=== PATIENT | female | born 1945 | race Caucasian/White ===

== ENCOUNTER 2019-05-05 10:35 | Emergency (ER) | payer MEDICARE ==
[2019-05-05] MEDS ORDERED: diphenhydrAMINE 25 MG Cap PO ONE (10:41)
--- NOTE | 2019-05-05 11:01 | EDM.PDOC ---
ED HPI GENERAL MEDICAL PROBLEM - General Stated Complaint: STUNK BY BEES Time Seen by Provider: 05/05/19 10:35 Source of Information: Reports: Patient History Limitations: Reports: No Limitations - History of Present Illness INITIAL COMMENTS - FREE TEXT/NARRATIVE: 73-year-old female was stung several times about one hour ago, mostly on her hands. She is very anxious and concerned she is can get a systemic reaction because she has 2 sons that are allergic to bees. She has never had an allergic reaction herself. Her hands are extremely itchy where she was stung, she is also very itchy on her 1 foot where she was stung. No shortness of breath, rash , swelling or other systemic symptoms. Onset: Sudden Duration: Hour(s): (About one hour ago) Location: Reports: Upper Extremity, Left, Lower Extremity, Right Quality: Reports: Burning, Sharp, Stabbing, Other (Markedly itchy) Associated Symptoms: Reports: No Other Symptoms hands Pain Score (Numeric/FACES): 10 - Related Data Allergies Allergy/AdvReac Type Severity Reaction Status Date / Time erythromycin base Allergy Hives Verified 05/05/19 10:42 niacin Allergy Nausea Verified 05/05/19 10:42 Home Meds: Home Meds Aspirin [Adult Low Dose Aspirin EC] 81 mg PO DAILY 04/17/14 [History] Propranolol [Inderal] 40 mg PO BEDTIME 05/05/19 [History] Propranolol [Inderal] 80 mg PO DAILY 05/05/19 [History] Simvastatin [Zocor] 20 mg PO DAILY 05/05/19 [History] hydroCHLOROthiazide [Hydrochlorothiazide] 1 tab PO DAILY 05/05/19 [History] ED ROS GENERAL - Review of Systems Review Of Systems: See Below Constitutional: Denies: Fever, Chills Respiratory: Denies: Shortness of Breath, Cough Cardiovascular: Denies: Chest Pain GI/Abdominal: Denies: Abdominal Pain, Nausea, Vomiting Skin: Reports: Pruritis Neurological: Denies: Paresthesia ED EXAM, GENERAL - Physical Exam Exam: See Below Exam Limited By: No Limitations General Appearance: Alert, Anxious Eye Exam: Bilateral Eye: Normal Inspection Throat/Mouth: Normal Inspection Head: Atraumatic Neck: Normal Inspection Respiratory/Chest: No Respiratory Distress, Lungs Clear Cardiovascular: Regular Rate, Rhythm Extremities: Other (Some slight erythema at sites of stings but no swelling) Neurological: Alert, Oriented Skin Exam: Other (Slight erythema at sting sites only, no systemic erythema or hives) Course - Vital Signs Last Recorded V/S: Last Vital Signs Temp 97.2 F 05/05/19 10:52 Pulse 67 05/05/19 10:52 Resp 20 05/05/19 10:52 BP 199/89 H 05/05/19 10:52 Pulse Ox 97 05/05/19 10:52 - Orders/Labs/Meds Meds: Medications Discontinued Medications Generic Name Dose Route Start Last Admin Trade Name Danika PRN Reason Stop Dose Admin Diphenhydramine HCl 50 mg 05/05/19 10:41 05/05/19 10:47 Benadryl PO 05/05/19 10:42 50 mg ONETIME ONE Administration - Re-Assessments/Exams Free Text/Narrative Re-Assessment/Exam: 05/06/19 17:41 Patient given 50 mg of oral benadryl and observed for 40 minutes. Remained stable, no systemic reaction developed. Offered IM toradol but declined. Departure - Departure Time of Disposition: 11:34 Disposition: Home, Self-Care 01 Clinical Impression: Accidental bee sting - Discharge Information Instructions: Bee, Wasp, or Hornet Sting, Adult Referrals: PCP,None [Primary Care Provider] - Forms: ED Department Discharge Care Plan Goals: Anti-inflammatories will help such as ibuprofen, continue with Benadryl as needed to help with itching. Topical hydrocortisone at the bite sites will also be helpful. Return anytime if you feel you're worsening such as shortness of breath or widespread rash.
== END 2019-05-05 11:34 | disposition home or self-care (01) ==
LOC: JP.ED 10:35
DX: T63.441A Toxic effect of venom of bees, accidental (unintentional), initial encounter (principal); Z79.82 Long term (current) use of aspirin; Z79.899 Other long term (current) drug therapy
CPT/HCPCS: 99282; A9270

== ENCOUNTER 2021-11-27 06:32 | Day surgery (SDC) | payer MEDICARE ==
[2021-11-27] MEDS ORDERED: Sodium Chloride 0.9% 10 ML Syringe FLUSH ONE (07:00)
== END 2021-11-27 08:20 | disposition home or self-care (01) ==
LOC: JP.SDS 06:32
PROVIDERS: ATTEND Ophthalmology
DX: H25.11 Age-related nuclear cataract, right eye (principal); I10 Essential (primary) hypertension; E78.5 Hyperlipidemia, unspecified